=== PATIENT | male | born 1985 | race Caucasian/White ===

== ENCOUNTER 2017-07-01 19:48 | Emergency (ER) | payer MEDICAID, OTHER ==
[~2017-07-01] VITALS: Ht 177.8 cm; Wt 77.3 kg
[~2017-07-01 19:48] MED LIST: DIVA500T52 PO; GABA-531 PO; OLAN7.5T2 PO
[2017-07-01] MEDS ORDERED: CLON2 PO (20:02)
[2017-07-01] MEDS ORDERED: LORazepam 2 MG TABLET PO ONE (21:30)
[2017-07-01 22:07] VITALS: BP 115/87
== END 2017-07-01 22:53 | disposition home or self-care (01) ==
LOC: EMS 19:49
DX: S62.636A Displaced fracture of distal phalanx of right little finger, initial encounter for closed fracture (principal); F20.9 Schizophrenia, unspecified; F41.9 Anxiety disorder, unspecified; F32.9 Major depressive disorder, single episode, unspecified; F17.210 Nicotine dependence, cigarettes, uncomplicated; F12.90 Cannabis use, unspecified, uncomplicated; F11.10 Opioid abuse, uncomplicated; F19.90 Other psychoactive substance use, unspecified, uncomplicated; F13.90 Sedative, hypnotic, or anxiolytic use, unspecified, uncomplicated; Z88.0 Allergy status to penicillin; W18.40XA Slipping, tripping and stumbling without falling, unspecified, initial encounter; Y93.89 Activity, other specified; Y92.89 Other specified places as the place of occurrence of the external cause; Y99.8 Other external cause status
CPT/HCPCS: 99284

== ENCOUNTER 2017-09-11 15:46 | Inpatient (IN) | payer MEDICAID, OTHER ==
[~2017-09-11] VITALS: Ht 172.7 cm; Wt 65.8 kg
[~2017-09-11 15:46] MED LIST changes: +CLON2 PO; -OLAN7.5T2 PO
[2017-09-11] MEDS ORDERED: DiphenhydrAMINE HCL 50 MG/ML VIAL IM ONE (16:30)
[2017-09-11] MEDS ORDERED: HALOPERIDOL LACTATE 5 MG/ML VIAL IM ONE (16:30)
[2017-09-11] MEDS ORDERED: LORazepam 2 MG/ML VIAL IM ONE (16:30)
[2017-09-11 16:37] LABS: EOSINOPHILS % (AUTO) 0.6 % (1.0-6.0); HEMATOCRIT 38.1 % (41-53); HEMOGLOBIN 13.2 g/dL (13.5-17.5); LYMPHOCYTES # (AUTO) 1.4 K/uL (1.0-4.8); LYMPHOCYTES % (AUTO) 26.2 % (22.0-44.0); MEAN CORPUSCULAR HEMOGLOBIN 34.1 pg (26.0-34.0); MEAN CORPUSCULAR HGB CONC 34.7 G/dL (31.0-37.0); MEAN CORPUSCULAR VOLUME 98 fL (80-100); MONOCYTES # (AUTO) 0.4 K/uL (0.1-1.0); MONOCYTES % (AUTO) 8.4 % (2.0-9.0); NEUTROPHILS # (AUTO) 3.4 K/uL (1.8-7.7); NEUTROPHILS % (AUTO) 63.8 % (40.0-70.0); PLATELET COUNT (AUTO) 274 K/uL (150-450); RED BLOOD CELL COUNT(AUTO) 3.88 MIL/uL (4.50-5.90); RED CELL DISTRIBUTION WIDTH 12.7 % (11.5-14.5)
[2017-09-11 17:14] LABS: ANION GAP 10 mmol/L (8-16); CALCIUM, TOTAL 8.9 mg/dL (8.8-10.5); CARBON DIOXIDE 27 mmol/L (22-29); CHLORIDE 105 mmol/L (98-107); CREATININE 0.86 mg/dL (0.60-1.30); GLOMERULAR FILTR. RATE CALC > 60 mL/min (>60); GLUCOSE,RANDOM 85 mg/dL (70-110); POTASSIUM 4.5 mmol/L (3.5-5.1); SODIUM SERUM 142 mmol/L (136-145); UREA NITROGEN, BLOOD 14 mg/dL (7-18)
[2017-09-11 17:20] LABS: ALANINE AMINOTRANSFERASE 22 U/L (12-78); ALBUMIN 3.9 g/dL (3.4-5.0); ALKALINE PHOSPHATASE 39 U/L (46-116); ASPARTATE AMINOTRANSFERASE 21 U/L (15-37); BILIRUBIN,TOTAL 0.7 mg/dL (0.1-1.0); TOTAL PROTEIN, SERUM 6.3 g/dL (6.4-8.2); VALPROIC ACID 26 mcg/mL (50-100)
[2017-09-11] MEDS ORDERED: DIAZEPAM 10 MG TABLET PO PRN (17:30)
[2017-09-11] MEDS ORDERED: OLANZapine 5 MG RAPDIS TABLET PO PRN (17:30)
[2017-09-11] MEDS ORDERED: GuaiFENesin/D-METHORPHAN [SUGAR-FREE] 200-20MG/10 ML SYRUP UDCUP PO PRN (17:30)
[2017-09-11] MEDS ORDERED: LOPERAMIDE HCL 2 MG CAPSULE PO PRN (17:30)
[2017-09-11] MEDS ORDERED: MAG HYDROX/AL HYDROX/SIMETH ES 30 ML SUSPENSION UDCUP PO PRN (17:30)
[2017-09-11] MEDS ORDERED: CYANOCOBALAMIN 1,000 MCG/ML VIAL IM ONE (17:30)
[2017-09-11] MEDS ORDERED: MAGNESIUM HYDROXIDE SUSPENSION 30 ML UDCUP PO PRN (17:30)
[2017-09-11] MEDS ORDERED: HydrOXYzine PAMOATE 50 MG CAPSULE PO PRN (17:30)
[2017-09-11] MEDS: DIVALPROEX SODIUM 500 MG ER TABLET PO SCH (21:31)
[2017-09-11] MEDS: OLANZapine 5 MG RAPDIS TABLET PO SCH (21:56)
[2017-09-11] MEDS: THIAMINE HCL 100 MG TABLET PO SCH (21:56)
[2017-09-12] VITALS (13 sets, daily range): BP systolic 105–122; BP diastolic 55–76
[2017-09-12] MEDS ORDERED: INFLUENZA VIRUS VACCINE QVS 2017-18 (3YR+)/PF 60 MCG/0.5 ML SYRINGE IM ONE (00:30)
[2017-09-12] MEDS ORDERED: -PHARMACY VACCINE NOTE- MISC ONE (00:30)
[2017-09-12] MEDS ORDERED: DIAZEPAM 10 MG TABLET PO PRN (07:00)
[2017-09-12] MEDS: NICOTINE 21 MG/24 HOUR PATCH TD SCH (09:00)
[2017-09-12] MEDS: MULTIVITAMINS WITH MINERALS, THERAPEUTIC TABLET PO SCH (09:20)
[2017-09-12] MEDS: FOLIC ACID 1 MG TABLET PO SCH (09:20)
[2017-09-12] MEDS: THIAMINE HCL 100 MG TABLET PO SCH ×2 (09:21→16:09)
[2017-09-12] MEDS: DIAZEPAM 10 MG TABLET PO SCH ×4 (09:21→20:13)
[2017-09-12] MEDS: ACETAMINOPHEN 325 MG TABLET PO PRN (12:21)
[2017-09-12] MEDS: ACAMPROSATE CALCIUM 333 MG DR TABLET PO SCH (16:42)
[2017-09-12] MEDS: OLANZapine 5 MG RAPDIS TABLET PO SCH (20:13)
[2017-09-12] MEDS: DIVALPROEX SODIUM 500 MG ER TABLET PO SCH (20:13)
[2017-09-13 03:01] VITALS: BP 119/70
[2017-09-13 08:00] VITALS: BP 104/66
[2017-09-13] MEDS: THIAMINE HCL 100 MG TABLET PO SCH ×2 (09:37→16:34)
[2017-09-13] MEDS: ACAMPROSATE CALCIUM 333 MG DR TABLET PO SCH ×3 (09:37→16:34)
[2017-09-13] MEDS: FOLIC ACID 1 MG TABLET PO SCH (09:37)
[2017-09-13] MEDS: MULTIVITAMINS WITH MINERALS, THERAPEUTIC TABLET PO SCH (09:37)
[2017-09-13] MEDS: DIAZEPAM 10 MG TABLET PO SCH ×4 (09:38→20:35)
[2017-09-13] MEDS: NICOTINE 21 MG/24 HOUR PATCH TD SCH (09:43)
[2017-09-13] MEDS: ACETAMINOPHEN 325 MG TABLET PO PRN (13:34)
[2017-09-13 13:43] VITALS: BP 119/70
[2017-09-13 16:00] VITALS: BP 131/75
[2017-09-13] MEDS: DIVALPROEX SODIUM 500 MG ER TABLET PO SCH (20:35)
[2017-09-13] MEDS: ZOLPIDEM TARTRATE 10 MG TABLET PO PRN (20:35)
[2017-09-13] MEDS: OLANZapine 5 MG RAPDIS TABLET PO SCH (20:35)
[2017-09-14 06:39] VITALS: BP 109/66
[2017-09-14] MEDS ORDERED: DIAZEPAM 5 MG TABLET PO PRN (07:00)
[2017-09-14 08:11] VITALS: BP 114/62
[2017-09-14] MEDS: DIAZEPAM 5 MG TABLET PO SCH ×4 (08:48→20:42)
[2017-09-14] MEDS: NICOTINE 21 MG/24 HOUR PATCH TD SCH (08:48)
[2017-09-14] MEDS: MULTIVITAMINS WITH MINERALS, THERAPEUTIC TABLET PO SCH (08:49)
[2017-09-14] MEDS: THIAMINE HCL 100 MG TABLET PO SCH ×2 (08:49→16:15)
[2017-09-14] MEDS: FOLIC ACID 1 MG TABLET PO SCH (08:49)
[2017-09-14] MEDS: ACAMPROSATE CALCIUM 333 MG DR TABLET PO SCH ×3 (08:49→16:15)
[2017-09-14 09:26] VITALS: BP 114/62
[2017-09-14] MEDS: ACETAMINOPHEN 325 MG TABLET PO PRN (14:18)
[2017-09-14 14:19] VITALS: BP 118/68
[2017-09-14 15:18] VITALS: BP 114/66
[2017-09-14 16:00] VITALS: BP 130/83
[2017-09-14] MEDS ORDERED: LOPERAMIDE HCL 2 MG CAPSULE PO PRN (17:30)
[2017-09-14] MEDS: DIVALPROEX SODIUM 500 MG ER TABLET PO SCH (20:42)
[2017-09-14] MEDS: ZOLPIDEM TARTRATE 10 MG TABLET PO PRN (20:43)
[2017-09-14] MEDS ORDERED: OLANZapine 10 MG RAPDIS TABLET PO SCH (21:00)
[2017-09-15 06:54] VITALS: BP 114/70
[2017-09-15] MEDS ORDERED: DIAZEPAM 5 MG TABLET PO PRN (07:00)
[2017-09-15 08:00] VITALS: BP 117/72
[2017-09-15 08:08] VITALS: BP 117/72
[2017-09-15] MEDS: FOLIC ACID 1 MG TABLET PO SCH (08:58)
[2017-09-15] MEDS: THIAMINE HCL 100 MG TABLET PO SCH (08:58)
[2017-09-15] MEDS: MULTIVITAMINS WITH MINERALS, THERAPEUTIC TABLET PO SCH (08:58)
[2017-09-15] MEDS: ACAMPROSATE CALCIUM 333 MG DR TABLET PO SCH ×2 (08:58→12:43)
[2017-09-15] MEDS: NICOTINE 21 MG/24 HOUR PATCH TD SCH (08:58)
[2017-09-15] MEDS ORDERED: ACAM333T7 PO ×2 (13:41→15:12)
[2017-09-15] MEDS ORDERED: DIVA500T52 PO ×2 (13:41→15:12)
[2017-09-15] MEDS ORDERED: OLAN10TA22 PO (13:41)
[2017-09-15] MEDS ORDERED: NICO-704 TD (15:12)
[2017-09-15] MEDS ORDERED: OLAN10TA6 PO (15:12)
== END 2017-09-15 16:00 | disposition home or self-care (01) | DRG 750 ==
LOC: EMS 15:53 → B3A 21:30
PROVIDERS: ADMIT Psychiatry & Neurology Psychiatry; ATTEND Psychiatry & Neurology Psychiatry
DX: F25.9 Schizoaffective disorder, unspecified (principal); R45.851 Suicidal ideations; Z91.14 Patient's other noncompliance with medication regimen; I10 Essential (primary) hypertension; Z28.21 Immunization not carried out because of patient refusal; F17.210 Nicotine dependence, cigarettes, uncomplicated; Z91.19 Patient's noncompliance with other medical treatment and regimen; F12.90 Cannabis use, unspecified, uncomplicated; F32.9 Major depressive disorder, single episode, unspecified; F41.9 Anxiety disorder, unspecified; Z79.899 Other long term (current) drug therapy
CPT/HCPCS: 96372; 99291; G0480; J1200; J1630; J2060; J3420